=== PATIENT | female | born 1965 | race Caucasian/White ===

== ENCOUNTER 2020-08-08 13:57 | Emergency (ER) | payer MEDICAID, SELFPAY ==
[2020-08-08 13:58] VITALS: BP 119/76; PULSE 72; RESP 16; TEMP 36.9; O2SAT 93
--- NOTE | 2020-08-08 13:58 | XRR_ITS ---
PROCEDURE INFORMATION: Exam: XR Chest Exam date and time: 08/08/2020 1:59 PM Age: 55 years old Clinical indication: Chest pain; Additional info: Cp TECHNIQUE: Imaging protocol: XR of the chest Views: 1 view. COMPARISON: CT chest w con* [id number] 09/14/2015 7:54 AM FINDINGS: Lungs: Unremarkable. No consolidation. Pleural spaces: Unremarkable. No pleural effusion. No pneumothorax. Heart/Mediastinum: Unremarkable. No cardiomegaly. Bones/joints: Unremarkable. XR/XR chest 1V portable [id number] IMPRESSION: No acute findings.
--- NOTE | 2020-08-08 13:58 | ECG_ITS ---
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 Measurements Intervals [place] Rate: 62 P: 85 NM: 148 QRS: 81 QRSD: 89 T: 52 QT: 436 QTc: 446 Interpretive Statements SINUS RHYTHM Compared to ECG 08/11/2015 15:41:55 No significant changes Electronically Signed On 08-08-2020 18:01:39 CDT by Don Blair M.D. [id number]
--- NOTE | 2020-08-08 14:02 | W.ED.CHESTPA ---
HPI - Chest Pain General: Chief Complaint: Chest Pain Stated Complaint: CHEST PAIN Time Seen by Provider: 08/08/20 13:58 Source: patient and EMS Mode of arrival: EMS Limitations: no limitations History of Present Illness: HPI narrative: 55-year-old female who is here from halfway states she been having chest pain over the last 2 days. States that sharp pain in the center of her chest denies any worsening improving factors. She denies any radiation of her pain. She has had some slight dyspnea. Denies any cough or fever. She has had no vomiting or diarrhea. Associated symptoms: Deny abdominal pain, dyspnea, fever(s), nausea or vomiting Review of Systems Const: Denies: fever(s), chills, body aches or change in appetite Eyes: Denies: blurry vision or eye discomfort ENMT: Denies: throat pain or dental pain Card: Reports: chest pain Resp: Denies: dyspnea GI: Denies: abdominal pain, nausea, vomiting or diarrhea : Denies: dysuria Musc: Denies: neck pain or back pain Skin/Breast: Denies: rash Neuro: Denies: headache(s) Psych: Denies: depression [place]/Lymph: Denies: easy bruising All/Imm: Denies: urticaria Physical Exam Const: COMMON NORMALS: no acute distress, patient oriented x3 and healthy appearing HENMT: COMMON NORMALS: normocephalic and atraumatic HEAD & SCALP: normocephalic and atraumatic Eye: COMMON NORMALS: Equal, round and reactive pupils present and EOMs intact bilaterally PUPIL: Yes Equal, round and reactive pupils present Neck/C-Spine: COMMON NORMALS: full ROM and supple Chest: COMMONS NORMALS: normal inspection of the chest and normal palpation of entire chest wall Resp: COMMON NORMALS: normal respiratory effort, No retractions, No use of accessory muscles and clear to auscultation bilaterally AUSCULTATION: clear to auscultation bilaterally Cardio: COMMON NORMALS: regular rate, regular rhythm and No murmurs present (Cardio) RATE: regular rate RHYTHM: regular rhythm GI: COMMON NORMALS: Normal to inspection, nondistended, normoactive bowel sounds present, Soft to palpation, non-tender and no masses PALPATION: Yes Soft to palpation Extremity: COMMON NORMALS: normal to inspection and full ROM Neuro: COMMON NORMALS: patient oriented x3, moves all extremities and no focal motor deficits Psych: COMMON NORMALS: mental status grossly normal, Normal thought process present and cooperative THOUGHT PROCESS: Normal thought process present Skin: COMMON NORMALS: no rashes or lesions noted and no wounds GENERAL SKIN EXAM: no rashes or lesions noted Course Vital Signs: Vital signs: Vital Signs Temperature 98.4 F 08/08/20 13:58 Pulse Rate 72 08/08/20 16:51 Respiratory Rate 18 08/08/20 16:51 Blood Pressure 131/84 08/08/20 16:51 Pulse Oximetry 96 08/08/20 16:51 MDM - Chest Pain MDM Narrative: Medical decision making narrative: Patient presents here with chest pains atypical in nature. Initial and repeat troponins are negative and her EKGs are normal as well. Initial blood drawn her electrolytes were incorrect and redraw her potassium levels were all normal. Patient feels improved here she is stable for discharge back to the halfway. Lab Data: Labs: Lab Results 08/08/20 08/08/20 08/08/20 Range/Units 14:10 14:10 14:10 WBC 6.9 (4.0-10.0) 10^3/ uL RBC 4.16 (4.1-5.3) 10^6/u L Hgb 12.9 (11.5-15.3) g/dL Hct 41.1 (37.0-47.0) % MCV 98.8 (81-99) fL MCH 31.0 (28.0-34.0) pg MCHC 31.4 (30.0-36.0) g/dL RDW 12.8 (12.1-15.1) % Plt Count 272 (130-400) 10^3/c mm MPV 9.4 (7.4-10.4) fL Neut % (Auto) 70.3 % Lymph % (Auto) 22.9 % [place] % (Auto) 5.4 % Eos % (Auto) 0.4 % Baso % (Auto) 0.6 % Neut # (Auto) 4.81 (1.8-7.7) 10^3/u L Lymph # (Auto) 1.6 (0.8-4.8) 10^3/u L [place] # (Auto) 0.4 (0.2-0.9) 10^3/u L Eos # (Auto) 0.0 (0.0-0.8) 10^3/u L Baso # (Auto) 0.0 (0.0-0.1) 10^3/u L Nucleated RBC % (a uto) 0 % Nucleated RBCs # 0.0 /100WBC D-Dimer (0-0.59) ug/mIFE U Sodium 147 H (136-145) mmol/L Potassium 2.3 L* (3.5-5.1) mmol/L Chloride 125 H (98-107) mmol/L Carbon Dioxide 15 L (22-29) mmol/L Anion Gap 9.3 (5-19) BUN 6 (6-20) mg/dL Creatinine 0.2 L (0.5-0.9) mg/dL GFR Calculation 370.1 H (90-130) mL/min Glucose 54 L (65-115) mg/dL Calculated Osmolal ity 299 H (285-295) mOsm/k g Calcium 4.4 L* (8.5-10.5) mg/dL Total Bilirubin 0.2 (0.15-1.2) mg/dL AST 5 (0-32) U/L ALT < 5 (0-33) U/L Alkaline Phosphata se 28 L (35-105) IU/L Troponin T Baselin e 9 (0-10) ng/L Troponin T 120 Min [place] (0-10) ng/L Delta Troponin T (0-10) ABS# Total Protein 3.3 L (6.6-8.7) g/dL Albumin 2.3 L (3.5-5.2) g/dL Globulin 1.0 L (1.3-4.6) g/dL Urine Color (Yellow) Urine Appearance (CLEAR) Urine pH (5-7) Ur Specific Gravit y (1.005-1.030) Urine Protein (Negative) Urine Glucose (UA) (Normal) Urine Ketones (Negative) Urine Blood (Negative) Urine Nitrate (Negative) Urine Bilirubin (Negative) Urine Urobilinogen (Negative) mg/dL Ur Leukocyte Cara ase (Negative) 08/08/20 08/08/20 08/08/20 Range/Units 14:10 14:14 15:11 WBC (4.0-10.0) 10^3/ uL RBC (4.1-5.3) 10^6/u L Hgb (11.5-15.3) g/dL Hct (37.0-47.0) % MCV (81-99) fL MCH (28.0-34.0) pg MCHC (30.0-36.0) g/dL RDW (12.1-15.1) % Plt Count (130-400) 10^3/c mm MPV (7.4-10.4) fL Neut % (Auto) % Lymph % (Auto) % [place] % (Auto) % Eos % (Auto) % Baso % (Auto) % Neut # (Auto) (1.8-7.7) 10^3/u L Lymph # (Auto) (0.8-4.8) 10^3/u L [place] # (Auto) (0.2-0.9) 10^3/u L Eos # (Auto) (0.0-0.8) 10^3/u L Baso # (Auto) (0.0-0.1) 10^3/u L Nucleated RBC % (a uto) % Nucleated RBCs # /100WBC D-Dimer 0.29 (0-0.59) ug/mIFE U Sodium (136-145) mmol/L Potassium (3.5-5.1) mmol/L Chloride (98-107) mmol/L Carbon Dioxide (22-29) mmol/L Anion Gap (5-19) BUN (6-20) mg/dL Creatinine (0.5-0.9) mg/dL GFR Calculation (90-130) mL/min Glucose (65-115) mg/dL Calculated Osmolal ity (285-295) mOsm/k g Calcium (8.5-10.5) mg/dL Total Bilirubin (0.15-1.2) mg/dL AST (0-32) U/L ALT (0-33) U/L Alkaline Phosphata se (35-105) IU/L Troponin T Baselin e (0-10) ng/L Troponin T 120 Min [place] 8.83 (0-10) ng/L Delta Troponin T -0.17 L (0-10) ABS# Total Protein (6.6-8.7) g/dL Albumin (3.5-5.2) g/dL Globulin (1.3-4.6) g/dL Urine Color Straw (Yellow) Urine Appearance Clear (CLEAR) Urine pH 7 (5-7) Ur Specific Gravit y 1.005 (1.005-1.030) Urine Protein Neg (Negative) Urine Glucose (UA) Norm (Normal) Urine Ketones Negative (Negative) Urine Blood Neg (Negative) Urine Nitrate Negative (Negative) Urine Bilirubin Neg (Negative) Urine Urobilinogen Norm (Negative) mg/dL Ur Leukocyte Cara ase Negative (Negative) 08/08/20 Range/Units 15:11 WBC (4.0-10.0) 10^3/ uL RBC (4.1-5.3) 10^6/u L Hgb (11.5-15.3) g/dL Hct (37.0-47.0) % MCV (81-99) fL MCH (28.0-34.0) pg MCHC (30.0-36.0) g/dL RDW (12.1-15.1) % Plt Count (130-400) 10^3/c mm MPV (7.4-10.4) fL Neut % (Auto) % Lymph % (Auto) % [place] % (Auto) % Eos % (Auto) % Baso % (Auto) % Neut # (Auto) (1.8-7.7) 10^3/u L Lymph # (Auto) (0.8-4.8) 10^3/u L [place] # (Auto) (0.2-0.9) 10^3/u L Eos # (Auto) (0.0-0.8) 10^3/u L Baso # (Auto) (0.0-0.1) 10^3/u L Nucleated RBC % (a uto) % Nucleated RBCs # /100WBC D-Dimer (0-0.59) ug/mIFE U Sodium 140 (136-145) mmol/L Potassium 4.3 (3.5-5.1) mmol/L Chloride 107 (98-107) mmol/L Carbon Dioxide 24 (22-29) mmol/L Anion Gap 13.3 (5-19) BUN 9 (6-20) mg/dL Creatinine 0.6 (0.5-0.9) mg/dL GFR Calculation 104.2 (90-130) mL/min Glucose 85 (65-115) mg/dL Calculated Osmolal ity 288 (285-295) mOsm/k g Calcium 8.5 (8.5-10.5) mg/dL Total Bilirubin (0.15-1.2) mg/dL AST (0-32) U/L ALT (0-33) U/L Alkaline Phosphata se (35-105) IU/L Troponin T Baselin e (0-10) ng/L Troponin T 120 Min [place] (0-10) ng/L Delta Troponin T (0-10) ABS# Total Protein (6.6-8.7) g/dL Albumin (3.5-5.2) g/dL Globulin (1.3-4.6) g/dL Urine Color (Yellow) Urine Appearance (CLEAR) Urine pH (5-7) Ur Specific Gravit y (1.005-1.030) Urine Protein (Negative) Urine Glucose (UA) (Normal) Urine Ketones (Negative) Urine Blood (Negative) Urine Nitrate (Negative) Urine Bilirubin (Negative) Urine Urobilinogen (Negative) mg/dL Ur Leukocyte Cara ase (Negative) Imaging Data^: CXR: Attestation: I personally reviewed and interpreted this imaging study as follows: My impression: no acute abnormality EKG Data^: EKG 1: Attestation: I personally reviewed and interpreted this EKG as follows: EKG interpretation date: 08/08/20 EKG interpretation time: 14:04 Interpretation: nsr hr [address] or t wave abnormalities qrs 89 qtc 442 EKG 2: Attestation: I personally reviewed and interpreted this EKG as follows: EKG interpretation date: 08/08/20 EKG interpretation time: 15:54 Interpretation: nsr hr [address] or t wave abnormalities qrs 86 qtc 428 Discharge Plan Discharge Patient Disposition: Home Clinical Impression: Chest pain Qualifiers: Chest pain type: unspecified Qualified Code(s): R07.9 - Chest pain, unspecified Condition: Stable Prescriptions: No Action acetaminophen [Tylenol Extra Strength] 500 mg Tablet 1,000 mg PO BID PRN (Reason: Pain) RF: 0 Discharge Orders: Discharge ED (Routine); Ordered 08/08/20 Ordered By: Bebeto Bains Referrals: De Riggs MD [Primary Care Provider] - Discharge Diet: Advance as tolerated Discharge Activity: Resume usual activity Patient Instructions: Chest Pain (ED) Coding Level of Care Code ED Customer Counter Representative for Chg Fwd Exam Comprehensive
[2020-08-08 14:04] VITALS: BP 119/76; PULSE 62; PULSE 63; RESP 16; O2SAT 95
--- NOTE | 2020-08-08 14:08 | PC.NURSE ---
EKG done at 1403 and shown to ER doctor
--- NOTE | 2020-08-08 14:17 | PC.NURSE ---
UA collected and sent to lab at 1415.
[2020-08-08 14:27] LABS: Basophils % 0.6 %; Eosinophils % 0.4 %; Hematocrit 41.1 % (37.0-47.0); Hemoglobin 12.9 g/dL (11.5-15.3); Lymphocytes # 1.6 10^3/uL (0.8-4.8); Lymphocytes % 22.9 %; Mean Corpuscular HGB Conc 31.4 g/dL (30.0-36.0); Mean Corpuscular Volume 98.8 fL (81-99); Mean Platelet Volume 9.4 fL (7.4-10.4); Monocytes # 0.4 10^3/uL (0.2-0.9); Monocytes % 5.4 %; Neutrophils # 4.81 10^3/uL (1.8-7.7); Neutrophils % 70.3 %; Nucleated Red Blood Cells % 0 %; Platelet Count 272 10^3/cmm (130-400); Red Blood Count 4.16 10^6/uL (4.1-5.3); Red Cell Distribution Width 12.8 % (12.1-15.1); White Blood Count 6.9 10^3/uL (4.0-10.0)
[2020-08-08 14:33] LABS: D Dimer 0.29 ug/mIFEU (0-0.59)
[2020-08-08 14:38] LABS: Troponin(5th) Baseline 9 ng/L (0-10)
[2020-08-08 14:42] LABS: Alanine Aminotransferase < 5 U/L (0-33); Albumin Level 2.3 g/dL (3.5-5.2); Alkaline Phosphatase 28 IU/L (35-105); Anion Gap 9.3 (5-19); Aspartate Amino Transferase 5 U/L (0-32); Blood Urea Nitrogen 6 mg/dL (6-20); Carbon Dioxide 15 mmol/L (22-29); Chloride 125 mmol/L (98-107); Glomerular Filtration Rate 370.1 mL/min (90-130); Glucose 54 mg/dL (65-115); Osmolality Calculated 299 mOsm/kg (285-295); Sodium 147 mmol/L (136-145); Total Bilirubin 0.2 mg/dL (0.15-1.2); Total Protein 3.3 g/dL (6.6-8.7)
[2020-08-08 14:54] LABS: Potassium 2.3 mmol/L (3.5-5.1)
[2020-08-08 14:55] VITALS: BP 119/76; PULSE 65; RESP 20; O2SAT 96
[2020-08-08 14:55] LABS: Calcium 4.4 mg/dL (8.5-10.5)
[2020-08-08] MEDS: potassium chloride ER 20 mEq Tablet 40 MEQ PO (15:00)
[2020-08-08] MEDS: sodium chloride 0.9% 1,000 ML 999 ML IV (15:07)
[2020-08-08 15:28] LABS: Add Urine Microscopic? NO
[2020-08-08 15:33] LABS: Bilirubin Urine Neg (Negative); Blood Urine Neg (Negative); Glucose Urine UA Norm (Normal); Ketones Urine Negative (Negative); Leukocyte Esterase Urine Negative (Negative); Nitrate Urine Negative (Negative); Protein Urine Neg (Negative); Specific Gravity, Urine 1.005 (1.005-1.030); Urine Appearance Clear (CLEAR); Urine Color Straw (Yellow); Urobilinogen Urine Norm (Negative); pH Urine 7 (5-7)
[2020-08-08 15:36] LABS: Anion Gap 13.3 (5-19); Blood Urea Nitrogen 9 mg/dL (6-20); Calcium 8.5 mg/dL (8.5-10.5); Carbon Dioxide 24 mmol/L (22-29); Chloride 107 mmol/L (98-107); Glomerular Filtration Rate 104.2 mL/min (90-130); Glucose 85 mg/dL (65-115); Osmolality Calculated 288 mOsm/kg (285-295); Potassium 4.3 mmol/L (3.5-5.1); Sodium 140 mmol/L (136-145)
[2020-08-08 15:56] VITALS: BP 90/56; PULSE 61; RESP 14; O2SAT 99
--- NOTE | 2020-08-08 15:56 | PC.NURSE ---
patient c/o cp emd informed and new ekg ordered
--- NOTE | 2020-08-08 15:58 | ECG_ITS ---
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 Measurements Intervals [place] Rate: 60 P: 83 FL: 152 QRS: 81 QRSD: 86 T: 57 QT: 428 QTc: 428 Interpretive Statements SINUS RHYTHM WITH SINUS ARRHYTHMIA POSSIBLE RIGHT VENTRICULAR CONDUCTION DELAY [RSR (QR) IN V1/V2] Compared to ECG 08/08/2020 14:04:56 No significant changes Electronically Signed On 08-08-2020 18:03:21 CDT by Don Blair M.D. [email or web address] branch hospitalFive Star Technologiesmercy [facility] west hospital.[employer]/store/OM/[id number]
[2020-08-08 16:05] VITALS: RESP 18
[2020-08-08] MEDS: morphine 4 mg/mL SDV 1 mL IVP (16:05)
[2020-08-08 16:11] LABS: Troponin 5 2HR 8.83 ng/L (0-10)
[2020-08-08 16:14] LABS: Troponin 5 2HR Delta -0.17 ABS# (0-10)
[2020-08-08 16:51] VITALS: BP 131/84; PULSE 72; RESP 18; O2SAT 96
== END 2020-08-08 16:53 | disposition home or self-care (01) ==
PROVIDERS: Emergency Provider Emergency Medicine; PCP Family Medicine
DX: R07.9 Chest pain, unspecified (principal)
CPT/HCPCS: 36415; 71045; 80048; 80053; 81003; 84484; 85025; 85378; 93005; 96361; 96374; 99284; J2270; J7030

== ENCOUNTER → 2020-09-27 11:42 | Outpatient (BNVA) | payer MEDICAID, SELFPAY | PROVIDERS: PCP Nurse Practitioner Family; Visit Provider Nurse Practitioner Family | DX: J11.1 Influenza due to unidentified influenza virus with other respiratory manifestations (principal); Z20.822 Contact with and (suspected) exposure to COVID-19; R53.83 Other fatigue | CPT/HCPCS: 87400; 87635 ==

== ENCOUNTER 2022-10-15 05:51 | Emergency (ER) | payer MEDICAID, SELFPAY ==
[2022-10-15] VITALS (7 sets, daily range): BP systolic 97–132; BP diastolic 56–101; PULSE 68–98; RESP 14–24; TEMP 36.9; O2SAT 92–97; BMI 21.2
--- NOTE | 2022-10-15 06:07 | ECG_ITS ---
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 Measurements Intervals [place] Rate: 85 P: 86 [place]: 146 QRS: 77 QRSD: 93 T: 57 QT: 340 QTc: 405 Interpretive Statements SINUS RHYTHM RIGHT ATRIAL ENLARGEMENT [0.3mV P-WAVE] POSSIBLE LEFT ATRIAL ENLARGEMENT [-0.1mV P-WAVE IN V1/V2] POSSIBLE RIGHT VENTRICULAR CONDUCTION DELAY [RSR (QR) IN V1/V2] MODERATE ST DEPRESSION [0.05+ mV ST DEPRESSION] Compared to ECG 08/08/2020 15:54:02 Atrial abnormality now present ST (T wave) deviation now present Sinus arrhythmia no longer present Electronically Signed On 10-15-2022 10:12:08 CDT by Don Blair M.D. [email or web address]/store/[id number]
--- NOTE | 2022-10-15 07:03 | XRR_ITS ---
PROCEDURE INFORMATION: Exam: XR Chest Exam date and time: 10/15/2022 7:31 AM Age: 57 years old Clinical indication: Shortness of breath; Additional info: Dyspnea.No history of trauma or recent surgery is provided. TECHNIQUE: Imaging protocol: Radiologic exam of the chest. 1image(s) are provided. Views: 1 view. COMPARISON: CR (CHEST, ) 08/08/2020 2:[address] chest report of 09/14/2015. FINDINGS: Lungs: The lung volumes are slightly increased overall suggestive of chronic air trapping.There is some subsegmental atelectasis versus post inflammatory scarring demonstrated.No lobar consolidation is appreciated. There is apical fibronodular scarring right more so than left appearing slightly increased. Pleural spaces: No pneumothorax or pleural effusion is appreciated. Heart/Mediastinum: The cardiomediastinal silhouette is upper normal in size.This can be seen with central averaging as well as lopez enlargement. There is some apical fibronodular scarring type changes similar overall. Diaphragm: The hemidiaphragms are symmetric. Bones/joints: There are postsurgical changes of the cervical spine demonstrated. Osseous alignment is maintained. No interval displaced fracture or dislocation is appreciated. There are some chronic appearing rib deformities for example on the left. Soft tissues: No radiopaque foreign body or subcutaneous emphysema is appreciated. Other findings: No significant interval changes are appreciated. XR/XR chest 1V portable [id number] IMPRESSION: There is chronic air trapping with no interval lobar consolidation or cardiac decompensation appreciated. There is some apical fibronodular scarring right more so than left which appears slightly increased overall. Consider noncontrast CT chest.
--- NOTE | 2022-10-15 07:06 | W.ED.SOB ---
HPI - SOB/Dyspnea General: Chief Complaint: Shortness of Breath/Dyspnea Stated Complaint: SOB/CP Time Seen by Provider: 10/15/22 06:03 History of Present Illness: HPI Narrative: Patient presents to the ER with complaints of shortness. This started several days ago and is continued to be getting worse. Patient does have a history of COPD and is on 2-1/2 L of oxygen at all times. Patient is requiring 4 L of oxygen at the current moment. MD elicited complaint: shortness of breath Pertinent past history: COPD Onset (ago): day(s) (A couple days) Timing: constant and progressively worsening Severity: moderate Exacerbating factors: nothing Relieving factors: oxygen Known history of: COPD Associated symptoms: Reports cough Review of Systems General: Reports: 10 or more systems reviewed and unremarkable except in HPI and below PFSH ED PFSH: Social History Smoking and tobacco status: current every day smoker cigarettes Packs smoked per day: 1 Female Reproductive History: Spontaneous abortions: No Physical Exam Const: COMMON NORMALS: no acute distress, average body habitus, patient oriented x3, no limitations, healthy appearing, alert and well nourished HENMT: COMMON NORMALS: normocephalic, atraumatic, hearing grossly normal bilaterally, external ears normal, Normal external nose present and moist oral mucous membranes HEAD & SCALP: normocephalic and atraumatic NOSE: Normal external nose present EXTERNAL EAR: Yes external ears normal Eye: COMMON NORMALS: Equal, round and reactive pupils present, EOMs intact bilaterally, conjunctivae normal and no scleral icterus CONJUNCTIVA: Yes conjunctivae normal PUPIL: Yes Equal, round and reactive pupils present Neck/C-Spine: COMMON NORMALS: full ROM, no lymphadenopathy, supple, no meningeal signs, no JVD and Thyroid normal THYROID: Thyroid normal Chest: COMMONS NORMALS: normal inspection of the chest and normal palpation of entire chest wall Resp: EFFORT & INSPECTION: Yes able to speak in complete sentences and Yes symmetric chest movement AUSCULTATION: wheezes and diminished lung sounds Cardio: COMMON NORMALS: no JVD, regular rate, regular rhythm, S1 normal heart sound present and S2 normal heart sound present RATE: regular rate RHYTHM: regular rhythm HEART SOUNDS: S1 normal heart sound present and S2 normal heart sound present GI: COMMON NORMALS: Normal to inspection, nondistended, normoactive bowel sounds present, Soft to palpation, non-tender, No hepatosplenomegaly present and no masses PALPATION: Yes Soft to palpation and Yes No hepatosplenomegaly present : COMMON NORMALS: Yes no CVA tenderness BLADDER/KIDNEY EXAM: Yes no CVA tenderness Back/Pelvis: COMMON NORMALS: no CVA tenderness Neuro: COMMON NORMALS: patient oriented x3 SENSORIUM/ORIENTATION: Yes alert MENINGEAL SIGNS: Yes no meningeal signs Course Vital Signs: Vital signs: Vital Signs Temperature 98.4 F 10/15/22 05:53 Pulse Rate 68 10/15/22 09:59 Respiratory Rate 14 10/15/22 09:59 Blood Pressure 97/56 10/15/22 09:59 Pulse Oximetry 92 10/15/22 09:59 Oxygen Delivery Me thod Room Air 10/15/22 09:59 Oxygen Flow Rate 2.5 10/15/22 08:55 MDM - SOB/Dyspnea Medical Decision Making Patient presents to the ER with several day history of worsening shortness of breath. Patient does have COPD and is on 2 L per nasal cannula at all times. Patient was given a DuoNeb breathing treatment 10 mg Decadron followed by a albuterol breathing treatment. This did help has a patient is now moving a lot more air and is a lot more relaxed. Lab work was obtained as well as imaging. This showed a white count of 10.4, BUN/creatinine of 14 and 0.6, no infiltrate on the chest x-ray just COPD like changes. Patient be discharged home on oral steroids and she is to continue her breathing treatments and oxygen. Patient should follow-up with a provider within the next 1 week or as needed. Differential Diagnosis Likely acute exacerbation of chronic obstructive airways disease; Unlikely congestive heart failure, community acquired pneumonia, asthma with exacerbation or pulmonary embolism Medical Records I reviewed the patient's medical records. Lab Data I reviewed the patient's lab results. 10/15/22 07:31 10/15/22 06:05 Labs/Radiology: Radiology Impressions Chest X-Ray 10/15/22 07:03 IMPRESSION: There is chronic air trapping with no interval lobar consolidation or cardiac decompensation appreciated. There is some apical fibronodular scarring right more so than left which appears slightly increased overall. Consider noncontrast CT chest. Laboratory Results WBC 10.4 10^3/uL (4.0-10.0) H 10/15/22 07:31 Corrected WBC Cancelled 10/15/22 06:05 RBC 3.78 10^6/uL (4.1-5.3) L 10/15/22 07:31 Hgb 11.8 g/dL (11.5-15.3) 10/15/22 07:31 Hct 39.2 % (37.0-47.0) 10/15/22 07:31 MCV 103.7 fl (81-99) H 10/15/22 07:31 MCH 31.2 pg (28.0-34.0) 10/15/22 07:31 MCHC 30.1 g/dL (30.0-36.0) 10/15/22 07:31 RDW 13.0 % (12.1-15.1) 10/15/22 07:31 Plt Count 170 10^3/cmm (130-400) 10/15/22 07:31 MPV 9.1 fL (7.4-10.4) 10/15/22 07:31 Gran % Cancelled 10/15/22 06:05 Neut % (Auto) 74.3 % 10/15/22 07:31 Lymph % (Auto) 13.8 % 10/15/22 07:31 [place] % (Auto) 10.1 % 10/15/22 07:31 Eos % (Auto) 0.3 % 10/15/22 07:31 Baso % (Auto) 0.4 % 10/15/22 07:31 Neut # (Auto) 7.72 10^3/uL (1.8-7.7) H 10/15/22 07:31 Lymph # (Auto) 1.4 10^3/uL (0.8-4.8) 10/15/22 07:31 [place] # (Auto) 1.1 10^3/uL (0.2-0.9) H 10/15/22 07:31 Eos # (Auto) 0.0 10^3/uL (0.0-0.8) 10/15/22 07:31 Baso # (Auto) 0.0 10^3/uL (0.0-0.1) 10/15/22 07:31 Absolute Gran (auto) Cancelled 10/15/22 06:05 Nucleated RBC % (auto) 0 % 10/15/22 07:31 Nucleated RBCs # 0.0 /100WBC 10/15/22 07:31 Sodium 141 mmol/L (136-145) 10/15/22 06:05 Potassium 4.4 mmol/L (3.5-5.1) 10/15/22 06:05 Chloride 99 mmol/L (98-107) 10/15/22 06:05 Carbon Dioxide 30 mmol/L (22-29) H 10/15/22 06:05 Anion Gap 16.4 (5-19) 10/15/22 06:05 BUN 14 mg/dL (6-20) 10/15/22 06:05 Creatinine 0.6 mg/dL (0.5-0.9) 10/15/22 06:05 GFR Calculation 103.4 mL/min (90-130) 10/15/22 06:05 Glucose 129 mg/dL (65-115) H 10/15/22 06:05 Calculated Osmolality 294 mOsm/kg (285-295) 10/15/22 06:05 Calcium 9.2 mg/dL (8.5-10.5) 10/15/22 06:05 Magnesium 2.2 mg/dL (1.7-2.3) 10/15/22 06:05 Total Bilirubin 0.3 mg/dL (0.15-1.2) 10/15/22 06:05 AST 18 U/L (0-32) 10/15/22 06:05 ALT 16 U/L (0-33) 10/15/22 06:05 Alkaline Phosphatase 55 U/L (35-105) 10/15/22 06:05 Troponin T Gen 5 ng/L 26 ng/L (0-10) H 10/15/22 09:56 NT-Pro-B Natriuret Pep 100 pg/mL (0-125) 10/15/22 06:05 Total Protein 6.3 g/dL (6.6-8.7) L 10/15/22 06:05 Albumin 4.3 g/dL (3.5-5.2) 10/15/22 06:05 Globulin 2.0 g/dL (1.3-4.6) 10/15/22 06:05 SARS-CoV-2 Ag (Rapid) negative (Negative) 10/15/22 07:21 EKG Data EKG 1: I personally reviewed and interpreted this EKG as follows: EKG Interpretation Date: 10/15/22 EKG interpretation time: 06:07 Prior EKG tracings: not available for review Interpretation: EKG showed normal sinus rhythm, CO interval 146, QRS duration 93, QTc of 382, right atrial enlargement, possible left atrial enlargement, possible right ventricular conduction delay, moderate ST depression Discharge Plan Discharge Patient Disposition: Home Clinical Impression: Acute exacerbation of chronic obstructive airways disease, COPD (chronic obstructive pulmonary disease) Condition: Stable Prescriptions: New prednisone 50 mg tablet 50 mg PO DAILY 5 Days Qty: 5 0RF No Action acetaminophen [Tylenol Extra Strength] 500 mg Tablet 1,000 mg PO BID PRN (Reason: Pain) prednisone 20 mg Tablet 20 mg PO QAM hydroxyzine pamoate 50 mg Capsule 50 mg PO BID Protonix 40 mg Tablet,Delayed Release (Dr/Ec) 40 mg PO QAM BuSpar 10 mg Tablet 10 mg PO BID Lasix 20 mg Tablet 20 mg PO QAM metoprolol tartrate 25 mg Tablet 12.5 mg PO BID Symbicort 160-4.5 mcg/actuation HFA aerosol inhaler 1 puff inhalation BID Discharge Orders: Discharge ED (Routine); Ordered 10/15/22 Ordered By: Regulo Kiser Referrals: Pantera Campbell FNP [Primary Care Provider] - Patient Instructions: COPD (Chronic Obstructive Pulmonary Disease) (ED) Activity Restrictions/Additional Instructions: Please take your steroids as prescribed. Please continue on your oxygen and nebulizers for your COPD. Please follow-up with primary care within the next 1 week or as directed. Coding Level of Care Code ED Lead Massage Therapist for Heidi Sanchez
[2022-10-15 07:39] LABS: Alanine Aminotransferase 16 U/L (0-33); Albumin Level 4.3 g/dL (3.5-5.2); Alkaline Phosphatase 55 U/L (35-105); Blood Urea Nitrogen 14 mg/dL (6-20); Calcium 9.2 mg/dL (8.5-10.5); Carbon Dioxide 30 mmol/L (22-29); Chloride 99 mmol/L (98-107); Glomerular Filtration Rate 103.4 mL/min (90-130); Glucose 129 mg/dL (65-115); Magnesium 2.2 mg/dL (1.7-2.3); NT Pro B Type Natriuretic Pept 100 pg/mL (0-125); Osmolality Calculated 294 mOsm/kg (285-295); Sodium 141 mmol/L (136-145); Total Bilirubin 0.3 mg/dL (0.15-1.2); Total Protein 6.3 g/dL (6.6-8.7)
[2022-10-15 07:40] LABS: Anion Gap 16.4 (5-19); Potassium 4.4 mmol/L (3.5-5.1)
[2022-10-15 07:41] LABS: Aspartate Amino Transferase 18 U/L (0-32)
[2022-10-15 07:42] LABS: Basophils % 0.4 %; Eosinophils % 0.3 %; Hematocrit 39.2 % (37.0-47.0); Hemoglobin 11.8 g/dL (11.5-15.3); Lymphocytes # 1.4 10^3/uL (0.8-4.8); Lymphocytes % 13.8 %; Mean Corpuscular HGB Conc 30.1 g/dL (30.0-36.0); Mean Corpuscular Hemoglobin 31.2 pg (28.0-34.0); Mean Corpuscular Volume 103.7 fl (81-99); Mean Platelet Volume 9.1 fL (7.4-10.4); Monocytes # 1.1 10^3/uL (0.2-0.9); Monocytes % 10.1 %; Neutrophils # 7.72 10^3/uL (1.8-7.7); Neutrophils % 74.3 %; Nucleated Red Blood Cells % 0 %; Platelet Count 170 10^3/cmm (130-400); Red Blood Count 3.78 10^6/uL (4.1-5.3); White Blood Count 10.4 10^3/uL (4.0-10.0)
[2022-10-15 07:43] LABS: SARS Covid-2 Antigen negative (Negative)
[2022-10-15] MEDS: dexamethasone 10 mg/mL INJ IVP (08:45)
[2022-10-15] MEDS: albuterol 2.5 mg/3 mL Neb INHALATION (08:57)
[2022-10-15] MEDS: ipratropium-albuterol 3 mL Neb INHALATION (08:57)
[2022-10-15 09:22] LABS: Troponin T (5th) Once 24 ng/L (0-10)
--- NOTE | 2022-10-15 09:56 | PC.PHAR ---
pt is in [facility] [phone] office verified the pts medications
[2022-10-15 10:31] LABS: Troponin T (5th) Once 26 ng/L (0-10)
== END 2022-10-15 10:59 | disposition home or self-care (01) ==
PROVIDERS: Emergency Provider Emergency Medicine; PCP Nurse Practitioner Family
DX: J44.1 Chronic obstructive pulmonary disease with (acute) exacerbation (principal); F17.210 Nicotine dependence, cigarettes, uncomplicated; Z99.81 Dependence on supplemental oxygen
CPT/HCPCS: 71045; 80053; 83735; 83880; 84484; 85025; 87426; 93005; 94640; 96374; 99285; J1100; J7613

== ENCOUNTER → 2025-03-17 11:02 | Outpatient (BNVA) | payer MEDICAID, SELFPAY | PROVIDERS: PCP Nurse Practitioner Family; Visit Provider Family Medicine | DX: I70.0 Atherosclerosis of aorta (principal) | CPT/HCPCS: 71046 ==